=== PATIENT | male | born 1995 | race Caucasian/White ===

== ENCOUNTER 2024-09-19 08:28 | Emergency (ER) | payer OTHER ==
[2024-09-19] MEDS: Tetracaine HCl/PF 0.5% 4 ML Bottle EYELF ONE (09:21)
[2024-09-19] MEDS: Fluorescein 1 MG Ophth Strip EYELF ONE (09:22)
== END 2024-09-19 09:50 | disposition home or self-care (01) ==
LOC: DL.ED 08:28
DX: S01.21XA Laceration without foreign body of nose, initial encounter (principal); H11.32 Conjunctival hemorrhage, left eye; W22.8XXA Striking against or struck by other objects, initial encounter
CPT/HCPCS: 99283; J3490